=== PATIENT | female | born 1995 | race Caucasian/White ===

== ENCOUNTER → 2024-10-08 08:54 | Outpatient (REF) | payer OTHER, SELFPAY | LOC: WDC 08:54 | PROVIDERS: ATTENDING PHYSICIAN Obstetrics & Gynecology | DX: N60.02 Solitary cyst of left breast (principal); N63.42 Unspecified lump in left breast, subareolar | CPT/HCPCS: 76642 ==

== ENCOUNTER 2024-10-09 16:12 | Emergency (ER) | payer OTHER, SELFPAY ==
[2024-10-09 16:21] VITALS: BP 125/80
[2024-10-09 16:56] LABS: ALT (SGPT) 20 U/L (0-35); AST (SGOT) 26 U/L (14-36); Albumin 4.1 g/dl (3.5-5.0); Alkaline Phosphatase 45 U/L (38-126); Blood Urea Nitrogen 14 mg/dl (7-17); Calcium 9.1 mg/dl (8.4-10.2); Carbon Dioxide 27 mmol/L (22-30); Chloride 106 mmol/L (98-107); Glucose 109 mg/dl (70-99); Potassium 3.9 mmol/L (3.5-5.1); Sodium 142 mmol/L (135-145); Total Bilirubin 0.2 mg/dl (0.2-1.3); Total Protein 7.1 g/dl (6.3-8.2); eGFR > 60.00
[2024-10-09 16:58] LABS: % Basophils 0.2 % (0-2); % Eosinophils 0.3 % (0-6); % Immature Granulocytes 0.2 % (0-0.5); % Lymphocytes 39.2 % (20.5-51.1); % Monocytes 6.2 % (1.7-9.3); % Neutrophils 53.9 % (42.2-75.2); Absolute Lymphocytes 2.3 10^3/uL (1.2-3.4); Absolute Monocytes 0.4 10^3/uL (0.1-0.6); Absolute Neutrophils 3.1 10^3/uL (1.4-6.5); Hemoglobin 11.8 g/dL (12.0-16.0); Mean Corp Hgb Conc. 33.7 g/dL (33.0-37.0); Mean Corpuscular Hgb 31.1 pg (27.0-31.0); Mean Corpuscular Volume 92.1 fL (81.0-99.0); Mean Platelet Volume 10.4 fL (7.4-10.4); Nucleated Red Blood Cells % 0 %; Platelet Count 215 10^3/uL (130-400); Red Cell Dist. Width 12.9 % (11.5-14.5); White Blood Cell Count 5.8 10^3/uL (4.8-10.8)
[2024-10-09 17:02] LABS: Troponin I < 0.012 ng/ml
[2024-10-09 17:16] VITALS: BP 105/93
[2024-10-09 18:10] VITALS: BP 124/80
--- NOTE | 2024-10-09 18:41 | ED.GENMED ---
History of Present Illness
General
Chief Complaint: Chest Pain
Source: patient and family
Exam Limitations: none
Time Seen by Provider: 10/09/24 17:10
Nursing documentation reviewed up to this point in time: agreed with
History of Present Illness
History of Present Illness:
29-year-old female without significant past medical history presenting to the emergency department today with concerns of intermittent left-sided chest achy discomfort with some radiation to her left arm and left shoulder and left neck over the past
few weeks slightly worse today. No associated shortness of breath nausea vomiting diaphoresis. She claims that she did have bilateral nipple piercings prior to the onset.
Review of Systems
Review of Systems
Allergies reviewed?: Yes
All Other Systems: ROS reviewed and negative except as documented in HPI and ROS
Phy Exam
Physical Exam
Physical Exam:
GENERAL: Alert , in no apparent distress
EYE: pupils equal and reactive
NECK: Supple, no significant adenopathy.
ENT: o/p clr, mmm.
CARDIAC: Breast examination was performed left side that showed some inflammation below the left areola mild tenderness no redness or warmth regular rate and rhythm .
LUNGS: Clear breath sounds bilaterally, no acute respiratory distress, no wheezes/rales/rhonchi
ABDOMEN: Soft, without focal tenderness, no r/g, no cvat
NEUROLOGICAL: Alert and oriented, no focal neuro deficits
SKIN: Warm and dry, skin intact.
MUSCULOSKELETAL: No edema, well perfused.
PSYCH: Normal and appropriate interaction.
Scores
Heart Score for Chest Pain Patients
STEMI patient?: No
History: Slightly or Non-Suspicious
ECG: Normal
Age: </= 45 years
Risk Factors: No Risk Factors
Troponin: </= Normal Limit
Heart Score for Chest Pain Patients: 0
Heart Score Risk: 2.5% MACE over next 6 weeks
Course
Orders/Labs/Results
Orders:
Orders
10/09/24 16:13
Electrocardiogram (*1) Urgent
Reason for Study: Chest Pain
EKG- Treatment ONCE
10/09/24 16:28
Complete Blood Count/With Diff Urgent
Comprehensive Metabolic Panel Urgent
Troponin I Urgent
10/09/24 17:30
Chest [CR Chest - 2 Views ] Urgent
Comment:
Reason For Exam: cp
Abnormal Lab Results
10/09/24
16:28
RBC 3.80 L 10^6/uL
(4.20-5.40)
Hgb 11.8 L g/dL
(12.0-16.0)
Hct 35.0 L %
(37.0-47.0)
MCH 31.1 H pg
(27.0-31.0)
Glucose 109 H mg/dl
(70-99)
10/09/24 16:28
10/09/24 16:28
Vital Signs
Initial and Last Documented VS:
Initial Vital Signs
Temp Pulse Resp BP Pulse Ox
98.2 F 73 20 125/80 100
10/09/24 16:21 10/09/24 16:21 10/09/24 16:21 10/09/24 16:21 10/09/24 16:21
Last Documented Vital Signs
Temp Pulse Resp BP Pulse Ox
98.2 F 66 25 124/80 98
10/09/24 16:21 10/09/24 17:50 10/09/24 17:50 10/09/24 18:10 10/09/24 18:15
MDM/Problems Addressed
MDM/Problems Addressed:
29-year-old female presenting to the emergency department with concerns of left chest pain with radiation to the left neck and left arm intermittently over the past 2 weeks slightly worse today seem to happen after getting nipple piercings. Her
outpatient doctor ordered an ultrasound of the breast that showed some fibrotic changes but no emergent findings no signs of abscess. This was reviewed independently by me. Otherwise here vital signs are normal EKG normal chest x-ray normal labs
unremarkable troponin negative. No evidence of any emergent process very low risk for PE. Symptoms likely secondary to fibrocystic change left breast plan to have her follow-up as an outpatient. Return precautions given.
*Critical Care Note
Total Time (30-74mins, 75-104mins- exclusive of procedures): Not Applicable
ED Attending Note
-
Portions of this chart may have been created with voice recognition software.� Occasional wrong word or��sound alike� substitutions may have occurred due to the inherent limitations of voice recognition software.
Discharge Plan
Departure
Patient Disposition: Home (Routine Discharge)
Date of Disposition: 10/09/24
Time of Disposition: 18:41
Patient with high blood pressure during this ER visit?: No
Condition: Good
Covid-19: Not Applicable
Discharge Problem:
Breast lump or mass
Instructions: Fibrocystic Breast Changes (DC)
Prescriptions:
No Action
Pnv 102/Iron/Folate/Dha
1 tab PO DAILY
ibuprofen 600 MG tablet
600 mg PO Q4HPRN PRN (Reason: moderate pain/cramps) Qty: 90 0RF
Referrals:
Shana Iniguez MD [Active] - Follow up in 5-7 days
Saida Menjivar MD [Family Provider] -
Activity Restrictions/Additional Instructions:
You came to the emergency department today with concerns of chest discomfort. Here you have a reassuring assessment. Please follow closely with the breast doctor. Return to the emergency department any worsening, new or concerning symptoms.
Interventions
Interventions:
*Risk Screen - Suicide Last Done: 10/09/24 16:21
*General Assessment Last Done: 10/09/24 16:21
*Neglect/Abuse Screening Last Done: 10/09/24 16:21
ED- Cardiac Assessment Last Done: 10/09/24 18:00
Discharge Date and Time
Print Language: PARAGUAYAN
== END 2024-10-09 19:05 | disposition home or self-care (01) ==
LOC: EMR 16:12
PROVIDERS: Emergency Medicine; EMERGENCY PHYSICIAN Emergency Medicine; FAMILY PHYSICIAN Family Medicine
DX: R07.89 Other chest pain (principal); N60.12 Diffuse cystic mastopathy of left breast
CPT/HCPCS: 99285; 71046; 80053; 84484; 85025; 93005

== ENCOUNTER → 2025-06-14 09:03 | Outpatient (REF) | payer OTHER, SELFPAY | LOC: RAD 09:03 | PROVIDERS: ATTENDING PHYSICIAN Family Medicine | DX: R10.30 Lower abdominal pain, unspecified (principal); R63.4 Abnormal weight loss | CPT/HCPCS: 74177; Q9967 ==